=== PATIENT | female | born 1990 | race Caucasian/White ===

== ENCOUNTER 2017-10-15 17:17 | Emergency (ER) | payer SELFPAY ==
[~2017-10-15] VITALS: Wt 73.0 kg
[~2017-10-15 17:17] MED LIST: ACCUNEB 0.0.63 MG/3 INH; HYCODAN 1.5 MG-1 TAB PO; MEDROL DOSEPAK4 MG PO; MOTRIN800 MG PO; PROAIR HFA0.09 MG/AC IH; VIBRA-TAB100 MG PO; ZITHROMAX Z PA250 MG PO
[2017-10-15 17:48] LABS: BILIRUBIN NEGATIVE (NEGATIVE); BLOOD NEGATIVE (NEGATIVE); CLARITY SL CLOUDY (CLEAR); COLOR YELLOW (YELLOW); GLUCOSE NEGATIVE (NEGATIVE); KETONE NEGATIVE (NEGATIVE); LEUKO ESTERASE NEGATIVE (NEGATIVE); NITRITE NEGATIVE (NEGATIVE); PH 5.5 (5.0-9.0); SPECIFIC GRAVITY >= 1.030 (1.005-1.030); UROBILINOGEN 0.2 E.U./dl (0.2-1.0)
[2017-10-15 17:54] LABS: EPITHELIAL CELLS TNTC
[2017-10-15 17:55] LABS: BACTERIA 1+; RBC 0-2 rbc/hpf (0-2)
== END 2017-10-15 20:09 | disposition left against medical advice (07) ==
LOC: ED 17:17
PROVIDERS: Nurse Practitioner Family
DX: O46.91 Antepartum hemorrhage, unspecified, first trimester (principal); O26.891 Other specified pregnancy related conditions, first trimester; R10.9 Unspecified abdominal pain; Z3A.01 Less than 8 weeks gestation of pregnancy; Z98.890 Other specified postprocedural states